=== PATIENT | female | born 1965 | race Caucasian/White ===

== ENCOUNTER → 2020-09-15 | Outpatient (CLI) | payer BC, OTHER | LOC: KOH-I 13:04 | DX: M79.671 Pain in right foot (principal); M21.6X1 Other acquired deformities of right foot | CPT/HCPCS: 73630 ==

== ENCOUNTER → 2020-09-18 | Outpatient (CLI) | payer BC, OTHER | LOC: EMI 08:51 | DX: Z01.818 Encounter for other preprocedural examination (principal); M77.31 Calcaneal spur, right foot | CPT/HCPCS: 73721 ==

== ENCOUNTER → 2020-12-16 | Outpatient (CLI) | payer BC, OTHER ==
[~2020-12-16] MED LIST: BENICAR40 MG PO; CRESTOR 10 MG T10 MG PO; DILTIAZEM 24HR240 M1 PO; METOPROLOL SUCC25 MG PO; PAXIL30 MG PO
[2020-12-16 09:24] LABS: HEMOGLOBIN 13.8 gm/dl (12.3-15.3); RED BLOOD COUNT 4.63 M/UL (4.00-5.10); WHITE BLOOD COUNT 6.5 K/UL (4.5-11.0)
[2020-12-16 09:52] LABS: BUN/CREATININE RATIO 13 (0-10)
== END ==
LOC: OPSV2 08:00
PROVIDERS: Podiatrist Foot & Ankle Surgery
DX: Z01.818 Encounter for other preprocedural examination (principal); M77.31 Calcaneal spur, right foot; R94.31 Abnormal electrocardiogram [ECG] [EKG]
CPT/HCPCS: 36415; 80048; 83036; 85025; 93005

== ENCOUNTER → 2021-01-06 | Outpatient (CLI) | payer BC, OTHER | LOC: EXRD 14:29 | DX: I10 Essential (primary) hypertension (principal); Z28.3 Underimmunization status; R19.09 Other intra-abdominal and pelvic swelling, mass and lump | CPT/HCPCS: 76705 ==

== ENCOUNTER → 2021-01-08 | Day surgery (SDC) | payer BC, OTHER ==
[~2021-01-08] VITALS: Ht 157.5 cm; Wt 95.3 kg
== END | disposition home or self-care (01) ==
LOC: OR 12-30 07:30
DX: M77.31 Calcaneal spur, right foot (principal); M92.61 Juvenile osteochondrosis of tarsus, right ankle; M21.6X1 Other acquired deformities of right foot; M67.873 Other specified disorders of tendon, right ankle and foot; S92.001K Unspecified fracture of right calcaneus, subsequent encounter for fracture with nonunion; I10 Essential (primary) hypertension; E78.5 Hyperlipidemia, unspecified; K76.0 Fatty (change of) liver, not elsewhere classified; E66.9 Obesity, unspecified; Z68.38 Body mass index [BMI] 38.0-38.9, adult; Z88.8 Allergy status to other drugs, medicaments and biological substances; Z20.822 Contact with and (suspected) exposure to COVID-19
CPT/HCPCS: 73650; 76000; 82962; C1713; J0690; J1100; J1885; J2001; J2250; J2405; J2704; J2710; J2795; J3010; J3370; J7030; J7120; Q4133

== ENCOUNTER → 2021-06-03 | Outpatient (CLI) | payer BC, OTHER | LOC: KOH-I 05-27 15:30 | DX: I10 Essential (primary) hypertension (principal); E11.9 Type 2 diabetes mellitus without complications; E78.5 Hyperlipidemia, unspecified; M76.61 Achilles tendinitis, right leg; R22.9 Localized swelling, mass and lump, unspecified | CPT/HCPCS: 76604 ==

== ENCOUNTER → 2021-10-18 | Outpatient (CLI) | payer BC, OTHER | LOC: MAMO 10-06 13:30 → US 10-06 14:00 | DX: R92.8 Other abnormal and inconclusive findings on diagnostic imaging of breast (principal) | CPT/HCPCS: 76641-RT; 77065; G0279 ==

== ENCOUNTER → 2021-11-09 | Outpatient (CLI) | payer BC, OTHER | LOC: US 11-05 10:00 | DX: N60.31 Fibrosclerosis of right breast (principal) | CPT/HCPCS: 77065 ==